=== PATIENT | female | born 1985 | race Caucasian/White ===

== ENCOUNTER 2022-05-26 19:33 | Emergency (ER) | payer SELFPAY | END 2022-05-26 22:35 | LOC: JD.ED 19:33 | DX: Z53.21 Procedure and treatment not carried out due to patient leaving prior to being seen by health care provider (principal) ==

== ENCOUNTER 2022-06-16 20:43 | Emergency (ER) | payer MEDICAID ==
[2022-06-16 21:04] VITALS: BP 154/78; PULSE 82
[2022-06-16] MEDS ORDERED: Orphenadrine 100 MG Tab.ER ONE (23:56)
[2022-06-17] MEDS ORDERED: Orphenadrine 100 MG Tab.ER PO ONE (23:43)
== END 2022-06-16 23:55 | disposition home or self-care (01) ==
LOC: JD.ED 20:43
DX: S16.1XXA Strain of muscle, fascia and tendon at neck level, initial encounter (principal); S09.90XA Unspecified injury of head, initial encounter; W22.09XA Striking against other stationary object, initial encounter
CPT/HCPCS: 70450; 70450-26; 72125; 72125-26; 99283